=== PATIENT | male | born 2000 | race Caucasian/White ===

== ENCOUNTER 2020-10-24 10:45 | Emergency (ER) | payer OTHER, SELFPAY ==
[2020-10-24 11:00] VITALS: BP 151/78; PULSE 92; RESP 20; TEMP 36.9; O2SAT 98
--- NOTE | 2020-10-24 11:03 | ED.GENADULT ---
HPI - General Adult General Chief complaint: Nausea/Vomiting/Diarrhea Stated complaint: Nausea/Vomitting/Cough up Blood Time Seen by Provider: 10/24/20 10:49 Source: patient Mode of arrival: ambulatory Limitations: no limitations History of Present Illness HPI narrative: 20 y/o male. PMH includes: ADD. Presents to Urgent Care Clinic today with acute complaints of sore throat, nausea, as well as nasal congestion and coughing fits for past 48 hours. Client states to have been Dx w/positive Covid 19 virus October 09, 2020. He reports to have done well for the most part , and now has been coughing so much he has seen blood in his phlegm . He reports isolated episodes of nausea, and notes emesis x 2 twenty-four hours ago. Patient states to have not had any further emesis since that time, and is able to now keep fluids and soft foods down. No fever, chills. No REAGAN, dyspnea. No abdominal pain, flank pain, maleurogen concern, loose or bloody stool. He reports to have missed work yesterday due to his illness, and is now requesting work release. No additional acute c/o upon P.E. Related Data Allergies Allergy/AdvReac Type Severity Reaction Status Date / Time No Known Allergies Allergy Verified 09/30/19 16:53 Review of Systems Review of Systems: Narrative: CONSTITUTIONAL: Denies fever, chills, sweats. EYES: Denies visual changes, redness, discharge. ENT: Positive congestion, sore throat. Denies otalgia. CARDIOVASCULAR: Denies chest pain, palpitations, edema. RESPIRATORY: Denies dyspnea, wheezing. Positive cough. GASTROINTESTINAL: Denies abdominal pain, diarrhea. N/V now subsided. GENITOURINARY: Denies dysuria, hematuria, abnormal discharge SKIN: Denies rash or itching. MUSCULOSKELETAL: Denies acute back pain, joint pain, or myalgia. NEUROLOGIC: Denies numbness, or focal weakness. PSYCHIATRIC: Denies anxiety or depression. All systems reviewed & are unremarkable except as noted in HPI and below (HPI) [facility] Family History Family History Grandparent Diabetes mellitus Other Family history of malignant neoplasm Social History Social History Smoking status: Light tobacco smoker Second hand tobacco smoke exposure: Yes Alcohol intake: current Gender identity (if verbalized by the patient): Male Comments At the time of my signature I agree with nursing past medical history, surgical, social, and family history. There is no relevant family history pertinent to the presenting complaint. Exam Narrative: Exam Narrative: GENERAL: This is a well-nourished, well-developed patient, in no apparent distress. HEAD: normocephalic, atraumatic. EYES: PERRL. Sclera clear/white. Vision is grossly intact. EARS: External ears normal, auditory canals clear and without drainage, TMs normal without perforation. Hearing grossly intact. NOSE: External nose normal. Positive Rhinorrhea and nares with with mild erythema bilaterally. THROAT: Mucous membranes moist. Posterior pharynx is erythematous, but without obvious exudate. No oropharyngeal swelling. NECK: Neck supple, non-tender without lymphadenopathy, masses or thyromegaly. CARDIOVASCULAR: Regular rate and rhythm without murmurs, gallops, or rubs. RESPIRATORY: Breath sounds equal bilaterally. No wheezes or rales. Mild upper airway rhonchi, cleared with cough. No distress. GASTROINTESTINAL: Abdomen soft, non-tender, nondistended. Bowel sounds are active. No hepato-splenomegaly, or palpable masses. No guarding. SKIN: warm, intact with no suspicious lesions or rash, good texture and turgor. NEURO: awake, alert, and oriented to person, place and time. There were no obvious focal neurologic abnormalities. Steady gait EXTREMITIES: Normal range of motion. No edema. No calf tenderness. Negative Homans sign bilaterally. BACK: Nontender without deformity or crepitance. No flank tenderness.
== END 2020-10-24 11:29 | disposition home or self-care (01) ==
PROVIDERS: Emergency Provider Nurse Practitioner Adult Health; PCP Family Medicine
DX: K52.9 Noninfective gastroenteritis and colitis, unspecified (principal); J06.9 Acute upper respiratory infection, unspecified; F17.200 Nicotine dependence, unspecified, uncomplicated; Z86.19 Personal history of other infectious and parasitic diseases
CPT/HCPCS: 87081; 87880; 99213; G0463

== ENCOUNTER 2022-07-05 17:11 | Emergency (ER) | payer OTHER, SELFPAY ==
[2022-07-05 17:18] VITALS: BP 139/83; PULSE 99; RESP 16; TEMP 37.1; O2SAT 97
--- NOTE | 2022-07-05 17:32 | ED.SKABFB ---
HPI - Skin/Abscess/Foreign Bdy General Chief complaint: Skin/Abscess/Foreign Body Stated complaint: Burn/Finger/Right Hand Time Seen by Provider: 07/05/22 17:33 Source: patient and RN notes reviewed Mode of arrival: ambulatory Limitations: no limitations History of Present Illness HPI narrative: 22-year-old male presents concern for a burn to his right hand. He reports on Tuesday he was lighting a grill when he sustained thomason to his fingers, dorsal aspect of his hand. He reports close blisters, open skin on the second digit. He reports he has been cleaning it with antibacterial soap, using Neosporin. 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 MD complaint: other (burn) Related Data Allergies Allergy/AdvReac Type Severity Reaction Status Date / Time No Known Allergies Allergy Verified 07/05/22 17:23 Review of Systems Review of Systems: CONSTITUTIONAL: Denies malaise, chills, sweats, or fever. CARDIOVASCULAR: Denies chest pain, palpitations, or edema. RESPIRATORY: Denies cough or dyspnea. GASTROINTESTINAL: Denies abdominal pain, nausea, vomiting SKIN: Reports thomason to the right hand MUSCULOSKELETAL: Denies joint pain or myalgia. NEUROLOGIC: Denies headache. All systems reviewed & are unremarkable except as noted in HPI and below PMFSH Family History Family History Grandparent Diabetes mellitus Other Family history of malignant neoplasm Social History Social History Smoking status: Light tobacco smoker Second hand tobacco smoke exposure: Yes Alcohol intake: current Gender identity (if verbalized by the patient): Male Comments At time of signature, agree with nursing past medical, surgical, social and family history. There is no relevant family history pertinent to the presenting complaint Exam Narrative: GENERAL: Well-appearing, well-nourished, and in no acute distress. HEAD: Normocephalic, atraumatic. EYES: PERRLA, conjunctivae clear, and EOMI. ENT: Mucous membranes moist. Oropharynx without edema, erythema or lesions. NECK: Supple. No lymphadenopathy CHEST: Clear to auscultation. No respiratory distress. HEART: Regular rate and rhythm. SKIN: Warm, dry. Burn noted to the dorsal aspect of the second digit of the right hand, wound bed is pink. Oral small clear fluid-filled second-degree thomason noted to the hand and third digit, several first-degree thomason noted to the dorsal hand. No palmar thomason noted NEURO: Alert and oriented x3. PSYCH: Normal mood and affect Course Course Emergency Course: Patient is aware of diagnosis, understands and agrees to treatment plan. Anticipatory guidance given. Patient agrees to follow-up as directed and is aware of reasons to seek care at the emergency department. Portions of this record may have been created with voice recognition software Level of Care: Express Care Visit Vital Signs Vital signs: Vital Signs Temperature 98.8 F 07/05/22 17:18 Pulse Rate 99 07/05/22 17:18 Respiratory Rate 16 07/05/22 17:18 Blood Pressure 139/83 07/05/22 17:18 Pulse Oximetry 97 07/05/22 17:18 Oxygen Delivery Room Air 07/05/22 17:18 Temperature 98.8 F 07/05/22 17:18 Pulse Rate 99 07/05/22 17:18 Respiratory Rate 16 07/05/22 17:18 Blood Pressure 139/83 07/05/22 17:18 Pulse Oximetry 97 07/05/22 17:18 Oxygen Delivery Room Air 07/05/22 17:18 Reviewed. MDM - Skin/Abscess/Foreign Bdy MDM Narrative Medical decision making narrative: Exam findings show no acute concerns or changes; patient is non-toxic appearing and is in no distress. Patient is appropriate for outpatient treatment and follow-up. Critical Care Time Critical Care Time Critical Care Time: No Discharge Plan Discharge Clinical Impression: Burn of hand, right, second degree, Burn of back of hand, right, first degree, Burn of back of hand,
== END 2022-07-05 18:01 | disposition home or self-care (01) ==
PROVIDERS: Emergency Provider Nurse Practitioner
DX: T23.361A Burn of third degree of back of right hand, initial encounter (principal); F17.200 Nicotine dependence, unspecified, uncomplicated; X08.8XXA Exposure to other specified smoke, fire and flames, initial encounter
CPT/HCPCS: 99213; A9270; G0463

== ENCOUNTER 2023-03-27 14:11 | Emergency (ER) | payer OTHER, SELFPAY ==
[2023-03-27 14:22] VITALS: BP 157/90; PULSE 55; RESP 16; TEMP 36.8; O2SAT 100
--- NOTE | 2023-03-27 15:09 | ED.GENADULT ---
HPI - General Adult General Chief complaint: Back Pain/Injury Stated complaint: lower back pain Source: patient Mode of arrival: ambulatory Limitations: no limitations History of Present Illness HPI narrative: Patient presents requesting a note to excuse him from work on and Tuesday of last week. He indicates he was working on Tuesday when he slipped on some oil in landed back on his buttocks. He did not his head. No LOC. He had some mild pain in his buttocks at that time. He then developed some left lower back pain. He missed work on and Tuesday. He states his pain resolved on Tuesday. He is planning on returning to work tomorrow. He denies any hematuria, bladder/bowel incontinence or saddle anesthesia. He has no complaints at present time. Related Data Allergies Allergy/AdvReac Type Severity Reaction Status Date / Time No Known Allergies Allergy Verified 07/05/22 17:23 Review of Systems Review of Systems: CONSTITUTIONAL: Denies fever, chills, or sweats. EYES: Denies visual changes, redness, or discharge. ENT: Denies rhinorrhea, congestion, sore throat, or otalgia. CARDIOVASCULAR: Denies chest pain, palpitations, or edema. RESPIRATORY: Denies cough or dyspnea. GASTROINTESTINAL: Denies abdominal pain, nausea, vomiting, or diarrhea. GENITOURINARY: Denies dysuria or hematuria. SKIN: Denies rash or itching. MUSCULOSKELETAL: Reports recent pain in buttocks and left lower back, now resolved NEUROLOGIC: Denies headache, numbness, dizziness, or weakness. PSYCHIATRIC: Denies anxiety or depression. [facility] Past Medical History Medical History No pertinent past medical history Surgical History Surgical History No pertinent past surgical history Family History Family History Grandparent Diabetes mellitus Other Family history of malignant neoplasm Social History Social History Smoking status: Light tobacco smoker Second hand tobacco smoke exposure: Yes Alcohol intake: current Substance use: never Gender identity (if verbalized by the patient): Male Spiritual care concerns: No Exam Narrative: GENERAL: Well-appearing, well-nourished, and in no acute distress. HEAD: Normocephalic, atraumatic. EYES: PERRLA and EOMI. ENT: Nares clear, no rhinorrhea or epistaxis. Mucous membranes moist. Oropharynx without tonsillar hypertrophy exudate or other lesions. Bilateral TMs pearly robles nonbulging NECK: Supple. No adenopathy or masses. No carotid bruits or JVD CHEST: Clear to auscultation. No respiratory distress. No wheezes rales or rhonchi HEART: Regular rate and rhythm. No murmur heard. Normal peripheral pulses. ABDOMEN: Soft, nontender, nondistended, normal active bowel sounds. EXTREMITIES: Normal range of motion. No edema. BACK: No tenderness in midline or paraspinous muscles of lumbar spine. No CVA tenderness. No tenderness in posterior pelvis or buttocks SKIN: Warm, dry, no rash. NEURO: No focal deficits. Alert and oriented x3. PSYCH: Normal mood and affect. Course Course Emergency Course: This is a 23 old male came in following a recent fall essentially asking for a note to return to work. He has no reports of pain and PE is unremarkable. This is a reasonable request. Note provided. Follow up with primary provider. Go to ER for hematuria, saddle anesthesia bladder/bowel incontinence, intractable pain. Patient in agreement plan of care. Level of Care: Express Care Visit Vital Signs Vital signs: Vital Signs Temperature 36.8 C 03/27/23 14:22 Pulse Rate 55 L 03/27/23 14:22 Respiratory Rate 16 03/27/23 14:22 Blood Pressure 157/90 H 03/27/23 14:22 Pulse Oximetry 100 03/27/23 14:22 Oxygen Delivery Room Air 03/27/23
== END 2023-03-27 15:12 | disposition home or self-care (01) ==
PROVIDERS: Emergency Provider Nurse Practitioner; PCP Family Medicine
DX: S39.012A Strain of muscle, fascia and tendon of lower back, initial encounter (principal); W01.0XXA Fall on same level from slipping, tripping and stumbling without subsequent striking against object, initial encounter; F17.200 Nicotine dependence, unspecified, uncomplicated
CPT/HCPCS: 99212; G0463

== ENCOUNTER 2023-06-19 19:14 | Emergency (ER) | payer OTHER, SELFPAY ==
[2023-06-19 19:26] VITALS: BP 149/98; PULSE 92; RESP 16; TEMP 36.7; O2SAT 99
--- NOTE | 2023-06-19 19:27 | WPDEDEXPGENP ---
HPI - General Ped General Chief complaint: Unspecified Stated complaint: Heat exhaustion History of Present Illness HPI narrative: PATIENT HERE REQUESTING A WORK NOTE. 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 PATIENT STATES HE IS KEEPING HIMSELF WELL HYDRATED AND URINATING OFTEN. PATIENT DIET IN EYES ANY NAUSEA VOMITING NO DIZZINESS. PATIENT STATES HE FEELS FINE HE JUST NEEDS A NOTE SO HE CAN RETURN TO WORK ON TUESDAY. Related Data Allergies Allergy/AdvReac Type Severity Reaction Status Date / Time No Known Allergies Allergy Verified 07/05/22 17:23 Pediatric Review of Systems Review of Systems: CONSTITUTIONAL: DENIES FEVER, CHILLS, OR SWEATS. EYES: DENIES VISUAL CHANGES, REDNESS, OR DISCHARGE. ENT: DENIES RHINORRHEA, CONGESTION, SORE THROAT, OR OTALGIA. CARDIOVASCULAR: DENIES CHEST PAIN, PALPITATIONS, OR EDEMA. RESPIRATORY: DENIES COUGH OR DYSPNEA. GASTROINTESTINAL: DENIES ABDOMINAL PAIN, NAUSEA, VOMITING, OR DIARRHEA. GENITOURINARY: DENIES DYSURIA OR HEMATURIA. SKIN: DENIES RASH OR ITCHING. MUSCULOSKELETAL: DENIES BACK PAIN, JOINT PAIN, OR MYALGIA. NEUROLOGIC: DENIES HEADACHE, NUMBNESS, OR WEAKNESS. PSYCHIATRIC: DENIES ANXIETY OR DEPRESSION. [facility] Past Medical History Medical History (Updated 06/19/23 @ 19:30 by GOSIA GarrettP) No pertinent past medical history Surgical History Surgical History No pertinent past surgical history Family History Family History Grandparent Diabetes mellitus Other Family history of malignant neoplasm Social History Social History Smoking status: Light tobacco smoker Second hand tobacco smoke exposure: Yes Alcohol intake: current Substance use: never Gender identity (if verbalized by the patient): Male Spiritual care concerns: No Comments AT TIME OF SIGNATURE, AGREE WITH NURSING PAST MEDICAL, SURGICAL, SOCIAL AND FAMILY HISTORY. THERE IS NO RELEVANT FAMILY HISTORY PERTINENT TO THE PRESENTING COMPLAINT Pediatric Exam Narrative: Physical exam: GENERAL: WELL-APPEARING, WELL-NOURISHED, AND IN NO ACUTE DISTRESS. HEAD: NORMOCEPHALIC, ATRAUMATIC. EYES: PERRLA AND EOMI. ENT: NARES CLEAR, NO RHINORRHEA OR EPISTAXIS. MUCOUS MEMBRANES MOIST. NECK: SUPPLE. CHEST: CLEAR TO AUSCULTATION. NO RESPIRATORY DISTRESS. HEART: REGULAR RATE AND RHYTHM. NO MURMUR HEARD. NORMAL PERIPHERAL PULSES. ABDOMEN: SOFT, NONTENDER, NONDISTENDED, NORMAL ACTIVE BOWEL SOUNDS. EXTREMITIES: NORMAL RANGE OF MOTION. NO EDEMA. SKIN: WARM, DRY, NO RASH. NEURO: NO FOCAL DEFICITS. ALERT AND ORIENTED X3. GISELLE COMA SCALE EYE OPENING: SPONTANEOUS 4 GISELLE COMA SCALE MOTOR: OBEYS COMMANDS 6 GISELLE COMA SCALE VERBAL: ORIENTED 5 GISELLE COMA SCALE TOTAL 15 Course Course Level of Care: Express Care Visit Discharge Plan Discharge Clinical Impression: Encounter to obtain excuse from work Patient Disposition: Home, Self-Care Condition: Stable Instructions: Liquids and Hydration for Athletes (ED) Additional Instructions: PUSH FLUIDS MONITOR OUTPUT FOLLOW UP WITH PCP NEEDED Follow-up/Referrals: PHYSICIAN NOT ON STAFF,NONSTAFF [Primary Care Provider] - Stand Alone Forms: Work/School Release IP
== END 2023-06-19 19:33 | disposition home or self-care (01) ==
PROVIDERS: Emergency Provider Nurse Practitioner Family
DX: Z02.79 Encounter for issue of other medical certificate (principal); T67.5XXA Heat exhaustion, unspecified, initial encounter; X32.XXXA Exposure to sunlight, initial encounter; F17.290 Nicotine dependence, other tobacco product, uncomplicated
CPT/HCPCS: 99211; G0463

== ENCOUNTER 2023-10-04 18:05 | Emergency (ER) | payer OTHER, SELFPAY ==
--- NOTE | ~2023-10-04 | XR_ITS ---
EXAM: XR elbow RT min 3V DATE: 10/04/2023 18:25 HISTORY: HIT RT ELBOW ON A PIECE OF METAL 10/03/24. PAIN. . COMPARISON: None available. FINDINGS: Normal mineralization. No fracture or dislocation. No lytic or blastic lesion. Joint space s are maintained. No erosion or periosteal change. Soft tissues within normal limits. IMPRESSION: No acute osseous finding in the right elbow. Reviewed, dictated and finalized at location K. SUPERVISOR
[2023-10-04 18:10] VITALS: BP 158/97; PULSE 79; RESP 20; TEMP 36.3; O2SAT 98
--- NOTE | 2023-10-04 18:16 | ED.UPPEXIN ---
HPI - Extremity Injury (Upper) General Chief Complaint: Extremity Injury, Upper Stated Complaint: Right elbow injury Source: patient and RN notes reviewed Mode of arrival: ambulatory Limitations: no limitations History of Present Illness HPI narrative: Patient is a 23-year-old male who presents to the [facility] with complaints of right elbow pain. Patient states that he was reaching for an item while at work his his right elbow on a steel bolt. He states that he has noted the bruising and swelling to his elbow. However, he has full range of motion. He is neurovascularly intact distally. Patient states that his pain worsens when he puts weight on the elbow or with palpation. Related Data Home Medications Medication Instructions Recorded Confirmed No Home Medications 10/04/23 10/04/23 Allergies Allergy/AdvReac Type Severity Reaction Status Date / Time No Known Allergies Allergy Verified 10/04/23 18:14 Review of Systems Review of Systems: CONSTITUTIONAL: Denies fever, chills, or sweats. EYES: Denies visual changes, redness, or discharge. ENT: Denies otalgia and sore throat CARDIOVASCULAR: Denies chest pain, palpitations, or edema. RESPIRATORY: Denies cough or dyspnea. GASTROINTESTINAL: Denies abdominal pain, nausea, vomiting, or diarrhea. GENITOURINARY: Denies dysuria or hematuria. SKIN: Denies rash or itching. MUSCULOSKELETAL: Denies back pain or myalgia. Right elbow pain and swelling. NEUROLOGIC: Denies headache, numbness, or weakness. Pertinent positives per HPI. [facility] Past Medical History Medical History No pertinent past medical history Surgical History Surgical History No pertinent past surgical history Family History Family History Grandparent Diabetes mellitus Other Family history of malignant neoplasm Social History Social History Smoking status: Light tobacco smoker Second hand tobacco smoke exposure: Yes Alcohol intake: current Substance use: never Gender identity (if verbalized by the patient): Male Spiritual care concerns: No Comments At the time of my signature, I reviewed and agree with the nursing past medical, surgical, social, and family history. There is no relevant family history pertinent to the patient complaint. Exam Narrative: GENERAL: This is a well-nourished, well-developed patient, in no apparent distress. HEAD: normocephalic, atraumatic. EYES: PERRL. Sclera clear/white. Vision is grossly intact. EARS: External ears normal, auditory canals clear and without drainage, TMs normal without perforation. Hearing grossly intact. NOSE: External nose normal with no obvious nasal discharge, nares without redness, no rhinorrhea. THROAT: Mucous membranes moist, posterior pharynx clear. NECK: Neck supple, non-tender without lymphadenopathy, masses or thyromegaly. CARDIOVASCULAR: Regular rate and rhythm without murmurs, gallops, or rubs. RESPIRATORY: Clear to auscultation. Breath sounds equal bilaterally. No wheezes, rales, or rhonchi. GASTROINTESTINAL: Abdomen soft, non-tender, nondistended. Bowel sounds are active. No hepato-splenomegaly, or palpable masses. No guarding. SKIN: warm, intact with no suspicious lesions or rash, good texture and turgor. NEURO: awake, alert, and oriented to person, place and time. There were no obvious focal neurologic abnormalities. EXTREMITIES: Right elbow tenderness. Mild swelling and bruising. Full range of motion. Distal neurovascular and motor function intact. Course Course Level of Care: Express Care Visit Vital Signs Vital signs: Vital Signs Temperature 97.3 F L 10/04/23 18:10 Pulse Rate 79 10/04/23 18:10 Respiratory Rate 20 10/04/23 18:10 Blood Pressure 158/97 H 10/04/23 18:1
== END 2023-10-04 18:44 | disposition home or self-care (01) ==
PROVIDERS: Emergency Provider Nurse Practitioner
DX: S50.01XA Contusion of right elbow, initial encounter (principal); W22.8XXA Striking against or struck by other objects, initial encounter; Y99.0 Civilian activity done for income or pay
CPT/HCPCS: 73080; 99213; G0463

== ENCOUNTER 2023-12-26 17:52 | Emergency (ER) | payer OTHER, SELFPAY ==
[2023-12-26 18:00] VITALS: BP 142/85; PULSE 60; RESP 18; TEMP 37.2; O2SAT 99
--- NOTE | 2023-12-26 18:21 | ED.GENADULT ---
HPI - General Adult General Chief complaint: Upper Respiratory Infection Stated complaint: diarrhea Source: patient, RN notes reviewed and old records reviewed Mode of arrival: ambulatory Limitations: no limitations History of Present Illness HPI narrative: 23-year-old male patient presents to [facility] with complaint of diarrhea that started Tuesday. Patient states symptoms are slowly improving. Patient denies nausea, vomiting, abdominal pain, cough, congestion. Patient states needing work. Related Data Home Medications Medication Instructions Recorded Confirmed No Home Medications 10/04/23 12/26/23 Allergies Allergy/AdvReac Type Severity Reaction Status Date / Time No Known Allergies Allergy Verified 10/04/23 18:14 Review of Systems Constitutional: Constitutional: Reports no additional constitutional complaints, Denies body ache(s), Denies chills, Denies fatigue, Denies fever(s) and Denies headache(s) Eyes: Eyes: Reports no additional eye complaints and Denies blurry vision ENT: Reports system reviewed and no additional complaints, except as documented, Denies vertigo, Denies dizziness, Denies ear discharge, Denies otalgia, Denies facial pain, Denies headache(s), Denies nasal congestion, Denies nasal discharge, Denies sinus pain, Denies sinus pressure and Denies sore throat Cardiovascular: Cardiovascular: Reports no additional cardiovascular complaints, Denies chest pain, Denies chest pain at rest, Denies rapid heart rate and Denies dyspnea Respiratory: Respiratory: Reports no additional respiratory complaints, Denies chest congestion, Denies cough, Denies pain on inspiration, Denies pain with cough and Denies dyspnea Gastrointestinal: Gastrointestinal: Denies abdominal pain, Reports diarrhea, Denies nausea and Denies vomiting Integumentary/Breasts: Skin/Breast: Denies rash Neurologic: Reports system reviewed and no additional complaints, except as documented, Denies vertigo, Denies dizziness and Denies headache(s) Endocrine: Endocrine: Denies fatigue PMFSH Past Medical History Medical History No pertinent past medical history Surgical History Surgical History No pertinent past surgical history Family History Family History Grandparent Diabetes mellitus Other Family history of malignant neoplasm Social History Social History Smoking status: Light tobacco smoker Second hand tobacco smoke exposure: Yes Alcohol intake: current Substance use: never Gender identity (if verbalized by the patient): Male Spiritual care concerns: No Comments At the time of my signature, I reviewed and agree with the nursing past medical, surgical, social, and family history. There is no relevant family history pertinent to the patient complaint. Exam Const: General: cooperative, healthy appearing, no acute distress and well nourished Nutritional Appearance: well nourished Orientation/consciousness: patient oriented x3 Limitations: no limitations HENMT: Head: normal to inspection and normocephalic Ears: external ears normal, TM's normal bilaterally, mastoids normal and Abnormal EAC present Face/Nose/Sinus: normal facial exam Face and sinus: normal facial exam Mouth: Yes Normal oral and palatal mucosa present, Yes oropharynx normal and Yes moist mucous membranes Throat: posterior oropharynx normal, tonsils normal, uvula midline and no uvular edema Eyes: General: appearance normal, both eyes and all related structures Sclera: sclerae normal Pupils: Equal, round and reactive pupils present Resp: Effort & Inspection: normal respiratory effort, able to speak in complete sentences, no audible wheezes, no cough, no respiratory distress and no retractions Auscultation: clear to auscu
== END 2023-12-26 18:30 | disposition home or self-care (01) ==
PROVIDERS: Emergency Provider Registered Nurse
DX: A08.39 Other viral enteritis (principal); F17.200 Nicotine dependence, unspecified, uncomplicated
CPT/HCPCS: 99211; G0463

== ENCOUNTER 2024-02-25 14:37 | Emergency (ER) | payer OTHER, SELFPAY ==
[2024-02-25 14:46] VITALS: BP 128/78; PULSE 66; RESP 20; TEMP 36.7; O2SAT 98
--- NOTE | 2024-02-25 15:35 | ED.GENADULT ---
HPI - General Adult General Chief complaint: Nausea/Vomiting/Diarrhea Stated complaint: diarrhea/nausea/cough Source: patient Mode of arrival: ambulatory Limitations: no limitations History of Present Illness HPI narrative: Patient presents requesting a note to excuse him from work for the past two days. Three days ago he began experiencing fever, chills, nausea, vomiting, diarrhea, and occasional cough. One of his coworkers was recently ill. No other sick contacts to his knowledge. He has taken nyquil for his symptoms, which allowed him to get some rest. His symptoms are improving. Related Data Allergies Allergy/AdvReac Type Severity Reaction Status Date / Time No Known Allergies Allergy Verified 02/25/24 14:44 Review of Systems Review of Systems: CONSTITUTIONAL: Reports fever and chills EYES: Denies visual changes, redness, or discharge. ENT: Denies rhinorrhea, congestion, sore throat, or otalgia. CARDIOVASCULAR: Denies chest pain, palpitations, or edema. RESPIRATORY: Reports occasional cough. Denies SOB GASTROINTESTINAL: Reports nausea, vomiting, diarrhea, all of which are improving. GENITOURINARY: Denies dysuria or hematuria. SKIN: Denies rash or itching. MUSCULOSKELETAL: Denies back pain, joint pain, or myalgia. NEUROLOGIC: Denies headache, numbness, dizziness, or weakness. PSYCHIATRIC: Denies anxiety or depression. [facility] Past Medical History Medical History Acute viral syndrome No pertinent past medical history Surgical History Surgical History No pertinent past surgical history Family History Family History Grandparent Diabetes mellitus Other Family history of malignant neoplasm Social History Social History Smoking status: Light tobacco smoker Second hand tobacco smoke exposure: Yes Alcohol intake: current Substance use: never Gender identity (if verbalized by the patient): Male Spiritual care concerns: No Exam Narrative: GENERAL: Well-appearing, well-nourished, and in no acute distress. HEAD: Normocephalic, atraumatic. EYES: PERRLA and EOMI. ENT: Nares clear, no rhinorrhea or epistaxis. Mucous membranes moist. Oropharynx without tonsillar hypertrophy exudate or other lesions. Bilateral TMs pearly robles nonbulging NECK: Supple. No adenopathy or masses. No carotid bruits or JVD CHEST: Clear to auscultation. No respiratory distress. No wheezes rales or rhonchi HEART: Regular rate and rhythm. No murmur heard. Normal peripheral pulses. ABDOMEN: Soft, nontender, nondistended, normal active bowel sounds. EXTREMITIES: Normal range of motion. No edema. SKIN: Warm, dry, no rash. NEURO: No focal deficits. Alert and oriented x3. PSYCH: Normal mood and affect. Course Course Emergency Course: This is a 24-year-old male who presented for evaluation of sick symptoms. COVID and influenza negative. Exam is consistent with acute viral syndrome. Symptoms are improving. Will discharge with Lomotil and Zofran. Increase hydration. Follow up with primary provider. Go to the ER for worsening symptoms. Patient in agreement with plan care. Level of Care: Express Care Visit Vital Signs Vital signs: Vital Signs Temperature 36.7 C 02/25/24 14:46 Pulse Rate 66 02/25/24 14:46 Respiratory Rate 20 02/25/24 14:46 Blood Pressure 128/78 02/25/24 14:46 Pulse Oximetry 98 02/25/24 14:46 Oxygen Delivery Room Air 02/25/24 14:46 Temperature 36.7 C 02/25/24 14:46 Pulse Rate 66 02/25/24 14:46 Respiratory Rate 20 02/25/24 14:46 Blood Pressure 128/78 02/25/24 14:46 Pulse Oximetry 98 02/25/24 14:46 Oxygen Delivery Room Air 02/25/24 14:46 Medical Decision Making Vital Signs Vital Signs: Vital Signs T
== END 2024-02-25 15:25 | disposition home or self-care (01) ==
PROVIDERS: Emergency Provider Nurse Practitioner
DX: B34.9 Viral infection, unspecified (principal); Z20.822 Contact with and (suspected) exposure to COVID-19; F17.200 Nicotine dependence, unspecified, uncomplicated
CPT/HCPCS: 87426; 87804; 99213; G0463

== ENCOUNTER 2024-03-15 17:21 | Emergency (ER) | payer OTHER, SELFPAY ==
[2024-03-15 17:25] VITALS: BP 152/93; PULSE 76; RESP 16; TEMP 37.3; O2SAT 99
--- NOTE | 2024-03-15 17:54 | ED.GENADULT ---
HPI - General Adult General Chief complaint: Eye Problems Stated complaint: eyes Time Seen by Provider: 03/15/24 17:42 Source: patient, RN notes reviewed and old records reviewed Mode of arrival: ambulatory Limitations: no limitations History of Present Illness HPI narrative: 24-year-old male to Express Care for complaint of bilateral eye pain for 2 days. Patient states that a has been wearing old contacts for approximately 5 months. Patient states that he has also been falling asleep with his contacts in a lot lately. Patient reports for past 2 days he has woken up with his eyes crusty and irritated. Patient denies visual changes. Related Data Allergies Allergy/AdvReac Type Severity Reaction Status Date / Time No Known Allergies Allergy Verified 02/25/24 14:44 Review of Systems Review of Systems: All systems reviewed & are unremarkable except as noted in HPI and below Constitutional: Constitutional: Reports no additional constitutional complaints Eyes: Eyes: Reports as per HPI, Denies change in vision, Reports eye discharge and Reports irritation ENT: Reports system reviewed and no additional complaints, except as documented Cardiovascular: Cardiovascular: Reports no additional cardiovascular complaints, Denies chest pain and Denies dyspnea Respiratory: Respiratory: Reports no additional respiratory complaints, Denies cough and Denies dyspnea Musculoskeletal: Musculoskeletal: Reports no additional musculoskeletal complaints Neurologic: Reports system reviewed and no additional complaints, except as documented Psychiatric: Psychiatric: Reports no additional psychiatric complaints PMFSH Past Medical History Medical History Acute viral syndrome No pertinent past medical history Surgical History Surgical History No pertinent past surgical history Family History Family History Grandparent Diabetes mellitus Other Family history of malignant neoplasm Social History Social History Smoking status: Light tobacco smoker Second hand tobacco smoke exposure: Yes Alcohol intake: current Substance use: never Gender identity (if verbalized by the patient): Male Spiritual care concerns: No Comments At the time of my signature, I reviewed and agree with the nursing past medical, surgical, social, and family history. There is no relevant family history pertinent to the patient complaint. Exam Const: General: cooperative, healthy appearing, comfortable, no acute distress, alert and well nourished Nutritional Appearance: well nourished Orientation/consciousness: patient oriented x3 Limitations: no limitations HENMT: Head: normal to inspection Ears: external ears normal Face/Nose/Sinus: Normal external nose present, Normal nares present, normal facial exam, No erythema and No edema Face and sinus: normal facial exam, no erythema and no edema Mouth: Yes Normal oral and palatal mucosa present Eyes: Alignment and Position: alignment normal and position normal Periorbital: periorbital findings normal Eyelids: eyelids normal Conjunctivae: conjunctival abnormality bilateral conjunctival injection diffuse Sclera: scleral abnormality bilateral scleral injection Pupils: Equal, round and reactive pupils present Neck: Neck: normal visual inspection, full ROM and no meningeal signs Lymphatic: no lymphadenopathy noted and no lymphedema noted Chest: Chest palpation & inspection: normal inspection of the chest Resp: Effort & Inspection: normal respiratory effort and able to speak in complete sentences Auscultation: clear to auscultation bilaterally Cardio: Jugular venous distension: no JVD Rate: regular rate Rhythm: regular rhythm Back/Spine/Pelvis: Cervical Spine:
== END 2024-03-15 18:01 | disposition home or self-care (01) ==
PROVIDERS: Emergency Provider Nurse Practitioner Family
DX: H10.9 Unspecified conjunctivitis (principal)
CPT/HCPCS: 99213; G0463

== ENCOUNTER 2024-09-03 15:48 | Emergency (ER) | payer OTHER, SELFPAY ==
[2024-09-03 15:53] VITALS: BP 157/82; PULSE 85; RESP 20; TEMP 36.9; O2SAT 100
--- NOTE | 2024-09-03 17:07 | ED.BACK ---
HPI - Back Pain/Injury General Chief Complaint: Back Pain/Injury Stated Complaint: Lower back pain Time Seen by Provider: 09/03/24 17:07 Source: patient, RN notes reviewed and old records reviewed Mode of arrival: ambulatory Limitations: no limitations History of Present Illness HPI Narrative: 24 year old male presents to [facility] care accompanied by significant other with complaints of left lower back pain after helping a friend do some landscaping and lifting on cement blocks and he felt a pull on his lower back.. Patient reports that he has no pain radiation to his legs, denies any tingling or numbness to his legs or any difficulty with passing stool or urination, Patient states pain increases when bending, is able to arise from lying, sitting position without difficulty.Patient has noted left SI pain on palpation. Patient reports that he has not taken any OTC medication for his pain MD elicited complaint: back pain Onset (ago): day(s) (4 days) Pain scale (0-10): 5 Quality: dull and other (tightness) Location: left lower back (SI area) Radiation: none Related Data Allergies Allergy/AdvReac Type Severity Reaction Status Date / Time No Known Allergies Allergy Verified 02/25/24 14:44 Review of Systems Review of Systems: CONSTITUTIONAL: Denies fever, chills, or sweats. EYES: Denies visual changes, redness, or discharge. ENT: Denies rhinorrhea, congestion, sore throat, or otalgia. CARDIOVASCULAR: Denies chest pain, palpitations, or edema. RESPIRATORY: Denies cough or dyspnea. GASTROINTESTINAL: Denies abdominal pain, nausea, vomiting, or diarrhea. GENITOURINARY: Denies dysuria or hematuria. SKIN: Denies rash or itching. MUSCULOSKELETAL: Reports left lower back pain non radiating to legs, or myalgia. NEUROLOGIC: Denies headache, numbness, or weakness. PSYCHIATRIC: Denies anxiety or depression. All systems reviewed & are unremarkable except as noted in HPI and below PMFSH Past Medical History Medical History Acute viral syndrome No pertinent past medical history Surgical History Surgical History (Updated 09/04/24 @ 22:13 by Shalonda Wright NP) History of removal of pigmented skin lesion No pertinent past surgical history Family History Family History Grandparent Diabetes mellitus Other Family history of malignant neoplasm Social History Social History Smoking status: Light tobacco smoker Tobacco type: cigarettes and e-cigarettes/vaping Second hand tobacco smoke exposure: Yes Alcohol intake: current Substance use: current Substance use type: marijuana Gender identity (if verbalized by the patient): Male Spiritual care concerns: No Comments At time of signature, agree with nursing past medical, surgical, social and family history. There is no relevant family history pertinent to the presenting complaint Exam Narrative: GENERAL: Well-appearing, well-nourished, and in no acute distress. HEAD: Normocephalic, atraumatic. EYES: PERRLA and EOMI. ENT: Nares clear, no rhinorrhea or epistaxis. Mucous membranes moist.TM's normal, throat pink with no redness or swelling NECK: Supple. no lymphadenopathy CHEST: Clear to auscultation. No respiratory distress. SAO2 100% on room air HEART: Regular rate and rhythm. No murmur heard. Normal peripheral pulses. ABDOMEN: Soft, nontender, nondistended, normal active bowel sounds. EXTREMITIES: Normal range of motion. No edema. Pain to left lower back with tenderness on palpation over SI region, Pain non radiating to lower extremities, patient denies any tingling or numbness to lower extremities,Patient reports no saddle paraesthesia no difficulty passing urine or stools. Patient has increased pain when bending. SKIN: Warm, dry, no rash. NEURO: No focal deficits. Alert and oriented x3. Course Co
== END 2024-09-03 17:22 | disposition home or self-care (01) ==
PROVIDERS: Emergency Provider Registered Nurse
DX: M54.50 Low back pain, unspecified (principal); F17.210 Nicotine dependence, cigarettes, uncomplicated; F17.290 Nicotine dependence, other tobacco product, uncomplicated
CPT/HCPCS: 99213; G0463

== ENCOUNTER 2024-12-25 14:50 | Emergency (ER) | payer OTHER, SELFPAY ==
--- OUTSIDE RECORDS SUMMARY | 2024-12-25 14:53 | XMS_ITS | Referral Summary ---
Author Organization [facility] Address [address] [place] [address] Care Team Providers Care Aerospace Control And Warning Systems Name Role Phone [facility] Primar Care Provider Source Comments [facility],non-owned Affiliates and Associated Physician Practices is amultiple site organization consisting of ambulatory clinics and hospital sitesin [place], [place], [place] and [place]. This disclosure is being madepursuant to the Care Everywhere program and may not contain all information available regarding this patient. Last updated 18.[facility] Allergies No known active allergies Medications * Be aware that medications may not be up to date on this document. Alwaysverify current medications with the patient. Medication Sig Dispensed Refills Start Date End Date Status benzonatate (TESSALON) 200 MG capsuleIndications:C ough Take 1 capsule by mouth 3 times daily as needed for Cough 30 capsule 11/22/2017 Active Social History Tobacco Use Types Packs/Day Years Used Date Smoking Tobacco: Never Sex and Gender Information Value Date Recorded Sex Assigned at Not on file Gender Identity Not on file Sexual Orientation Not on file Last Filed Vital Signs Vital Sign Reading Time Taken Comments Blood Pressure 120/74 11/22/2017 9:16 AM TITLE MANAGER Pulse 69 11/22/2017 9:16 AM TITLE MANAGER Temperature 37.2 ??C (98.9 ??F) 11/22/2017 9:16 AM CS T Respiratory Rate 16 11/22/2017 9:16 AM TITLE MANAGER Oxygen Saturation 98% 11/22/2017 9:16 AM TITLE MANAGER Inhaled Oxygen Concentration - - Weight 72.6 kg (160 lb) 11/22/2017 9:16 AM TITLE MANAGER Height 182.9 cm (6') 11/22/2017 9:16 AM TITLE MANAGER Body Mass Index 21.7 11/22/2017 9:16 AM TITLE MANAGER Plan of Treatment Not on file Care Teams Aerospace Control And Warning Systems Relationship Specialty Start Date End [facility] [address] [place] [address] PCP - General 11/22/17
--- OUTSIDE RECORDS SUMMARY | 2024-12-25 14:53 | XMS_ITS | Clinical Summary ---
Author Organization [facility] Address [address] [facility] [address] Phone Care Team Providers Care Mechanical Test Engineer Name Role Phone Tavares Fernandez Primary Care Provider [phone] Allergies No known active allergies Medications amphetamine-dext roamphetamine (ADDERALL XR) 20 MG CAPSULE SR 24 HR TK 1 C PO ONCE D IN THE MORNING 0 6 Active amphetamine-dext roamphetamine (ADDERALL) 10 MG Tablet TK ONE T PO QAM 0 6 Active ondansetron (ZOFRAN ODT) 4 MG TABLET DISPERSIBLE Take 1 Tab by mouth every 8 hours as needed for Nausea. 15 Tab 7 Active traMADol (ULTRAM) 50 MG Tablet Take 1 Tab by mouth every 6 hours as needed for Moderate or more severe pain. 10 Tab 9 Active naproxen (NAPROSYN) 500 MG Tablet Take 1 Tab by mouth 2 times daily as needed for Moderate or more severe pain. 20 Tab 9 Active diclofenac (VOLTAREN) 50 MG Tablet Delayed Response Take 1 Tab by mouth 3 times daily. 45 Tab 1 Active Social History Tobacco Use Types Packs/Day Years Used Date Smoking Tobacco: Never Smokeless Tobacco: Never Alcohol Use Standard Drinks/Week Comments No 0 (1 standard drink = 0.6 oz pur e alcohol) socially Sex and Gender Information Value Date Recorded Sex Assigned at Not on file Legal Sex Male 9:01 PM CDT Gender Identity Not on file Sexual Orientation Not on file Occupation Industry Job Start Date Job End Date student Not on file Not on file Not on file Last Filed Vital Signs Vital Sign Reading Time Taken Comments Blood Pressure 101/54 04/28/2021 2:13 AM CDT Pulse 120 04/28/2021 2:08 AM CDT Temperature 36.5 ??C (97.7 ??F) 04/28/2021 2:08 AM CD T Respiratory Rate 20 04/28/2021 2:08 AM CDT Oxygen Saturation 96% 04/28/2021 2:08 AM CDT Inhaled Oxygen Concentration - - Weight 102.1 kg (225 lb) 04/28/2021 2:13 AM CDT Height 182.9 cm (6') 04/28/2021 2:13 AM CDT Body Mass Index 30.52 04/28/2021 2:13 AM CDT Plan of Treatment Health Maintenance Due Date Last Done Comments Hepatitis C Virus (HCV) Screening 1999 TdaP Immunization 1999 Human Papillomavirus (HPV) Immunization (1 - Male 3-dose series) 2014 Influenza Immunization (#1) 2024 SARS-COV-2 Immunization ( - season) 2024 Respiratory Syncytial Virus (RSV) Immunization (Adult) (1 - 1-dose 75+ series) 2074 Hepatitis B Immunization Completed 999, 1999, 1999 DTaP/Tdap/Td Immunization Discontinued 2003, 10/10/2000, 1999, Additional history exists Meningococcal Immunization (ACWY) Aged Out No longer eligible based on patient's age to complete this topic Pneumococcal Immunization Combined Aged Out No longer eligible based on patient's age to complete this topic Rotavirus Immunization Aged Out No lo nger eligible based on patient's age to complete this topic Insurance [facility] OAP [facility] OA [facility] OA Care Teams Mechanical Test Engineer Relationship Specialty Start Date End Date Tavares Fernandez DO [address] [place] [id number] PCP - General Family Medicine 07/26/19
--- OUTSIDE RECORDS SUMMARY | 2024-12-25 14:53 | XMS_ITS | Clinical Summary ---
Author Organization [facility] Address [address] [place] [address] Care Team Providers Care Embossing Press Operator Apprentice Name Role Phone [facility] Primar Care Provider Source Comments [facility],non-owned Affiliates and Associated Physician Practices is amultiple site organization consisting of ambulatory clinics and hospital sitesin [place], [place], [place] and [place]. This disclosure is being madepursuant to the Care Everywhere program and may not contain all information available regarding this patient. Last updated 18.[facility] Allergies No known active allergies Medications * [...] Comments Blood Pressure 120/74 11/22/2017 9:16 AM MACHINE OPERATOR CANE CUTTER Pulse 69 11/22/2017 9:16 AM MACHINE OPERATOR CANE CUTTER Temperature 37.2 ??C (98.9 ??F) 11/22/2017 9:16 AM CS T Respiratory Rate 16 11/22/2017 9:16 AM MACHINE OPERATOR CANE CUTTER Oxygen Saturation 98% 11/22/2017 9:16 AM MACHINE OPERATOR CANE CUTTER Inhaled Oxygen Concentration - - Weight 72.6 kg (160 lb) 11/22/2017 9:16 AM MACHINE OPERATOR CANE CUTTER Height 182.9 cm (6') 11/22/2017 9:16 AM MACHINE OPERATOR CANE CUTTER Body Mass Index 21.7 11/22/2017 9:16 AM MACHINE OPERATOR CANE CUTTER Plan of Treatment Health Maintenance Due Date Last Done Comments HIV SCREENING 2014 HPV VACCINE (1 - Male 3-dose series) 2014 HEPATITIS C SCREENING 02/15/2017 DTAP/TDAP/TD VACCINES (1 - Tdap) 2018 HEPATITIS B VACCINE (1 of 3 - 19+ 3-dose series) 2018 COVID-19 VACCINE (1 - 2023-2 5 season) 2024 INFLUENZA VACCINE (#1) 2024 DEPRESSION SCREENING 11/21/2024 ZOSTER VACCINE (1 of 2) 2049 HIB VACCINE Aged Out No longer eligi ble based on patient's age to complete this topic MENINGOCOCCAL (Group B) VACCINE Aged Out No longer eligible based on patient's age to complete this topic MENINGOCOCCAL VACCINE Aged Out No clyde nadya eligible based on patient's age to complete this topic PNEUMOCOCCAL VACCINE Aged Out No long er eligible based on patient's age to complete this topic Care Teams Embossing Press Operator Apprentice Relationship Specialty Start Date End Date [facility] [address] [place] [id number] PCP - General 11/22/17
--- OUTSIDE RECORDS SUMMARY | 2024-12-25 14:53 | XMS_ITS | Patient Health Summary ---
Author Organization [facility] Address [address] [place] [address] Care Team Providers Care Traffic Observer Name Role Phone [facility] Primar Care Provider Note from [facility],non-owned Affiliates and Associated Physician Practices is amultiple site organization consisting of ambulatory clinics and hospital sitesin [place], [place], [place] and [place]. This disclosure is being madepursuant to the Care Everywhere program and may not contain all information available regarding this patient. Last updated 18.[facility] Allergies No known active allergies Medications * Be aware that medications may not be up to date on this document. Alwaysverify current medications with the patient. * benzonatate (TESSALON) 200 MG capsule(Started 11/22/2017) Take 1 capsule by mouth 3 times daily as needed for Cough Social History Tobacco Use Types Packs/Day Years Used Date Smoking Tobacco: Never Sex and Gender Information Value Date Recorded Sex Assigned at Not on file Gender Identity Not on file Sexual Orientation Not on file Last Filed Vital Signs Vital Sign Reading Time Taken Comments Blood Pressure 120/74 11/22/2017 9:16 AM BILLING COORDINATOR Pulse 69 11/22/2017 9:16 AM BILLING COORDINATOR Temperature 37.2 ??C (98.9 ??F) 11/22/2017 9:16 AM CS T Respiratory Rate 16 11/22/2017 9:16 AM BILLING COORDINATOR Oxygen Saturation 98% 11/22/2017 9:16 AM BILLING COORDINATOR Inhaled Oxygen Concentration - - Weight 72.6 kg (160 lb) 11/22/2017 9:16 AM BILLING COORDINATOR Height 182.9 cm (6') 11/22/2017 9:16 AM BILLING COORDINATOR Body Mass Index 21.7 11/22/2017 9:16 AM BILLING COORDINATOR Procedures * STREP A SCREEN - POINT OF CARE (AMB) STL(Performed 02/23/2017) Performed for Nasopharyngitis acute Results * STREP A SCREEN (02/23/2017) Strep A Rapid POCT Negative Negative Strep A Internal Control Present Lot # [id number] Expiration Date Throat ENTIRE THROAT (SURFACE REGION OF NECK) / Unknown 02/23/2017 Funmi Dexter OUTPATIENT SURGERY RN-CATERPILLAR OPERATOR LAB - POINT OF CARE ORDERABLES Care Teams Traffic Observer Relationship Specialty Start Date End Date [facility] [address] [place] [id number] PCP - General 11/22/17
--- NOTE | 2024-12-25 14:57 | ED.MALEGU ---
HPI - Male Genitourinary General Chief complaint: Urogenital-Male Stated complaint: STD check Source: patient and RN notes reviewed Mode of arrival: ambulatory Limitations: no limitations History of Present Illness HPI Narrative: 24 y/o male presented for STD testing. Endorses a mild burning sensation with urination x2 days. Endorses unprotected sexual activity recently, stating he woke up at someone's house he didn't know. Endorses a previous STD and says this feels similar. Denies n/v/d/f/c. Related Data Home Medications ?Medication ?Instructions ?Recorded ?Confirmed ?Last Taken ?Type No Home Medications 12/25/24 12/25/24 Unknown History Allergies Allergy/AdvReac Type Severity Reaction Status Date / Time No Known Allergies Allergy Verified 12/25/24 15:08 Review of Systems Review of Systems: CONSTITUTIONAL: Denies body aches, fever, chills, or sweats. CARDIOVASCULAR: Denies chest pain, palpitations, or edema. RESPIRATORY: Denies cough or dyspnea. GASTROINTESTINAL: Denies abdominal pain, nausea, vomiting, or diarrhea. GENITOURINARY: Reports dysuria,denies frequency, urgency, hematuria, flank pain SKIN: Denies rash, itching, or wounds. MUSCULOSKELETAL: Denies back pain or myalgia. [facility] Past Medical History Medical History Acute viral syndrome No pertinent past medical history Surgical History Surgical History History of removal of pigmented skin lesion No pertinent past surgical history Family History Family History Grandparent Diabetes mellitus Other Family history of malignant neoplasm Social History Social History Smoking status: Light tobacco smoker Tobacco type: cigarettes and e-cigarettes/vaping Second hand tobacco smoke exposure: Yes Alcohol intake: current Substance use: current Substance use type: marijuana Gender identity (if verbalized by the patient): Male Spiritual care concerns: No Comments At time of signature, I have reviewed and agree with nursing past medical, surgical, social and family history unless otherwise noted. Please see nursing chart for further information. There is no relevant family history pertinent to the presenting complaint Exam Narrative: GENERAL: Well-appearing HEAD: Normocephalic EYES: EOMI. . ENT: Mucous membranes pink and moist. NECK: Normal AROM. Supple. CHEST: No respiratory distress. SKIN: Warm, dry, no rash. NEURO: No focal deficits. Alert and oriented x3. Gait steady. PSYCH: Normal affect. Course Course Emergency Course: Patient is aware of diagnosis, understands and agrees to treatment plan. Anticipatory guidance given. Patient agrees to follow-up as directed and is aware of reasons to seek care at the emergency department. Portions of this record may have been created with voice recognition software Level of Care: Express Care Visit Vital Signs Vital signs: Reviewed MDM - Male Genitourinary MDM Narrative Medical decision making narrative: Patient presenting with concern for STD. Urine specimen collected for GC, chlamydia, trich. Informed Pt will be contacted w/ results when they become available if they are positive. Discussed with patient that it takes up to 7 days for results of cultures to be released and explained that we may treat empirically at this time. Declines treatment at this time and will return should tests be positive. I have instructed the patient to return to the ER at any time if there are any new or worsening symptoms. The patient expressed understanding of and agreement with this plan. Differential Diagnosis Differential diagnosis: Likely urinary tract infection and urethritis Discharge Plan Discharge Clinical Impression: Concern about STD in male without diagnosis Patient Disposition: Home, Self-Care Condition: Stable Instructions: Antibiotic Form, Sexually Transmitted Diseases (ED), Safe Sex Practices (ED) Additional Instructions: Your urine has been sent off to test for gonorrhea, chlamydia, and trichomonas infections. You will be called if any of your tests come back positive. These tests can take up to 5 days to come back. If your tests come back positive you will need further treatment, and you will need to notify any partners that you have so they can be tested and treated. To avoid reinfection, you are advised to abstain from sexual intercourse until you and sex partners have been treated (ie, after completing the 7-day antibiotic regimen, and any symptoms have resolved. If your tests come back negative and you are still experiencing symptoms, please follow-up with your PCP for further evaluation and treatment. If your symptoms worsen to include fever, abdominal pain, or back pain, please go to the hospital immediately. Patient Language: Cypriot Prescriptions: No Action No Home Medications Follow-up/Referrals: PHYSICIAN,CLINICAL ENGINEERING MANAGER [Primary Care Provider] - Time of Disposition: 15:11
[2024-12-25 14:58] VITALS: BP 150/89; PULSE 85; RESP 20; TEMP 36.7; O2SAT 100
[2024-12-25 15:26] LABS: EDUAAPPEAR Clear; EDUABILI Negative (Negative); EDUABLOOD Trace (Negative); EDUACOLOR1 Light/Pale; EDUAGLUCOSE Negative (Negative); EDUAKETONE Negative (Negative); EDUALEUKO Negative (Negative); EDUANITRATE Negative (Negative); EDUAPROTEIN Negative (Negative); EDUASPGRAVITY 1.015; EDUAUROBILI 0.2
[2024-12-25 20:03] LABS: Trichomonas Vag PCR NOT DETECTED (NOT DETECTE)
[2024-12-25 20:26] LABS: Chlamydia trachomatis NOT DETECTED (NOT DETECTE); Neisseria gonorrhoeae PCR NOT DETECTED (NOT DETECTE)
== END 2024-12-25 15:12 | disposition home or self-care (01) ==
PROVIDERS: Emergency Provider Nurse Practitioner Family
DX: Z20.2 Contact with and (suspected) exposure to infections with a predominantly sexual mode of transmission (principal); F17.210 Nicotine dependence, cigarettes, uncomplicated; F17.290 Nicotine dependence, other tobacco product, uncomplicated; F12.90 Cannabis use, unspecified, uncomplicated
CPT/HCPCS: 81003; 87086; 87491; 87591; 87661; 99213; G0463

== ENCOUNTER 2024-12-26 12:00 | Emergency (ER) | payer OTHER, SELFPAY ==
[2024-12-26 12:05] VITALS: BP 148/85; PULSE 72; RESP 18; TEMP 36.3; O2SAT 100
--- NOTE | 2024-12-26 12:31 | ED.MALEGU ---
HPI - Male Genitourinary General Chief complaint: Urogenital-Male Stated complaint: STD Exposure Time Seen by Provider: 12/26/24 12:28 Source: patient, RN notes reviewed and old records reviewed Mode of arrival: ambulatory Limitations: no limitations History of Present Illness HPI Narrative: 24 year old male resents to express care with complaints of lower back pain for a few days with no injury and stinging with urination. Patient was seen in clinic yesterday and STD screening performed per urine specimen yesterday which were all negative and urine dip also performed with some blood noted in urine with culture sent. Patient reports that he came back today because he is having symptoms of stinging with urination and he is having the back pain with no history of kidney stones reported. Urine dip repeated today with 2+ ketones noted. fingerstick glucose was done with results of 92. Patient was given information yesterday about more comprehensive testing for STD's at [facility] and other facilities in area and patient reports he must of thrown it away. Patient reports that yesterday after he left he broke his phone. Patient reports that he has past history of ADHD. Patient states that he has taken NyQuil to help him sleep due to back pain. MD Complaint: other (stinging with urination and lower back pain) Onset (ago): day(s) (stinging with urination since last night and low back pain for a few days stated no injury) Severity: mild Severity scale (1-10): 2 Quality: aching Related Data Allergies Allergy/AdvReac Type Severity Reaction Status Date / Time No Known Allergies Allergy Verified 12/26/24 12:42 Review of Systems Review of Systems: CONSTITUTIONAL: Denies fever, chills, or sweats. CARDIOVASCULAR: Denies chest pain, palpitations, or edema. RESPIRATORY: Denies cough or dyspnea. GASTROINTESTINAL: Denies abdominal pain, nausea, vomiting, or diarrhea. GENITOURINARY: Reports stinging with urination NO frequency, urgency. Denies flank pain or hematuria. SKIN: Denies rash or itching. MUSCULOSKELETAL: Reports lower back pain or myalgia with no injury Denies CVA tenderness NEUROLOGIC: Denies headache All systems reviewed & are unremarkable except as noted in HPI and below PMFSH Past Medical History Medical History Chlamydia 2018 0r 2019 reported ADHD (attention deficit hyperactivity disorder) reports he has not been on medication since graduated high school Acute viral syndrome No pertinent past medical history Surgical History Surgical History [place] teeth extracted History of removal of pigmented skin lesion Family History Family History Grandparent Diabetes mellitus Other Family history of malignant neoplasm Social History Social History Smoking status: Light tobacco smoker Tobacco type: cigarettes and e-cigarettes/vaping Second hand tobacco smoke exposure: Yes Alcohol intake: current Substance use: current Substance use type: marijuana Gender identity (if verbalized by the patient): Male Spiritual care concerns: No Comments At time of signature, agree with nursing past medical, surgical, social and family history. There is no relevant family history pertinent to the presenting complaint Exam Narrative: GENERAL: Well-appearing, well-nourished, and in no acute distress. HEAD: Normocephalic, atraumatic. NECK: Supple. CHEST: Clear to auscultation. No respiratory distress.SAO2 100% on room air HEART: Regular rate and rhythm. No murmur heard. Normal peripheral pulses. ABDOMEN: Soft, nontender, nondistended, normal active bowel sounds. No CVA tenderness reports stinging with urination EXTREMITIES: Normal range of motion. No edema reports lower back pain with no injury no radiation of pain to legs, denies any saddle paraesthesia or difficulty passing urine or stools, denies any tingling or numbness in legs. Able to change positions without difficulty, walks with steady gait. SKIN: Warm, dry, no rash. NEURO: No focal deficits. Alert and oriented x3.anxious Course Course Emergency Course: Patient is aware of diagnosis, understands and agrees to treatment plan.? Anticipatory guidance given.? Patient agrees to follow-up as directed and is aware of reasons to seek care at the emergency department. Portions of this record may have been created with voice recognition software Level of Care: Express Care Visit Vital Signs Vital signs: Vital Signs Temperature 36.3 C L 12/26/24 12:05 Pulse Rate 72 12/26/24 12:05 Respiratory Rate 18 12/26/24 12:05 Blood Pressure 148/85 H 12/26/24 12:05 Pulse Oximetry 100 12/26/24 12:05 Oxygen Delivery Room Air 12/26/24 12:05 Temperature 36.3 C L 12/26/24 12:05 Pulse Rate 72 12/26/24 12:05 Respiratory Rate 18 12/26/24 12:05 Blood Pressure 148/85 H 12/26/24 12:05 Pulse Oximetry 100 12/26/24 12:05 Oxygen Delivery Room Air 12/26/24 12:05 MDM - Male Genitourinary MDM Narrative Medical decision making narrative: Patient was given information about more comprehensive testing for STD's and information on how to contact again today, he was given information yesterday also which he threw away. Differential Diagnosis Differential diagnosis: Likely urethritis and other (stinging with urination, low back pain, concern with possible STD exposure, anxiety) Medical Records Attestation: I reviewed the patient's medical records. Lab Data Attestation: I reviewed the patient's lab results. Lab results narrative: see urine dip 2+ ketones.urine clear and yellow.fingerstick glucose 92 Labs: Lab Results 12/26/24 12/26/24 Range/Units 12:40 12:52 POC Capillary Glucose 92 (65-105) mg/dl POC Urine Color Yellow POC Urine Clarity Clear POC Urine pH 6.0 POC Ur Specif [place] 1.025 POC Urine Protein Negative (Negative) POC Ur Glucose (UA) Negative (Negative) POC Urine Ketones 2+ (Negative) POC Urine Blood Negative (Negative) POC Urine Nitrite Negative (Negative) POC Urine Bilirubin Negative (Negative) POC Urine Urobilinogen 0.2 POC U Leukocyte Esteras Negative (Negative) reviewed Critical Care Time Critical Care Time Critical Care Time: No Discharge Plan Discharge Clinical Impression: Possible exposure to STD Lower back pain Qualifiers: Chronicity: unspecified Back pain laterality: bilateral Sciatica presence: without sciatica Qualified Code(s): M54.50 - Low back pain, unspecified Patient Disposition: Home, Self-Care Condition: Stable Instructions: Sexually Transmitted Diseases (ED), Arthralgia (ED) Additional Instructions: Patient needs more comprehensive testing for STDs evaluation information given [facility] with information on how to contact. Patient was tested for gonorrhea chlamydia and Trichomonas yesterday with all test negative Patient reports back pain for the last 2-3 days no injury reported Patient needs to get established with Doctor. for primary care evaluation If your symptoms persist, change or worsen significantly before you can contact your personal physician then please, without delay, go to the emergency department for further evaluation. Follow-up with PCP in 7-10 days or sooner if needed Follow up with PCP soon in regards to your blood pressure which is elevated above threshold for referral. Blood pressure above 120/80 may indicate pre-hypertension blood pressure today 148/85. Patient Language: Mohawk Prescriptions: New naproxen 500 mg tablet 500 mg PO BID PRN (Reason: pain) Qty: 20 0RF Rx Instructions: take with food Follow-up/Referrals: PHYSICIAN,OUTDOOR ADVENTURE LEADER [Primary Care Provider] - Stand Alone Forms: Work/School Release IP Time of Disposition: 13:02 Quality Agustin Coma Scale Eyes: Open Verbal: Oriented and Alert Motor: Follows Commands [place] Coma Total Score: 15
[2024-12-26 12:44] LABS: Glucose Point of Care 92 mg/dl (65-105)
[2024-12-26 12:54] LABS: EDUAAPPEAR Clear; EDUABILI Negative (Negative); EDUABLOOD Negative (Negative); EDUACOLOR1 Yellow; EDUAGLUCOSE Negative (Negative); EDUAKETONE 2+ (Negative); EDUALEUKO Negative (Negative); EDUANITRATE Negative (Negative); EDUAPROTEIN Negative (Negative); EDUASPGRAVITY 1.025; EDUAUROBILI 0.2
--- OUTSIDE RECORDS SUMMARY | 2024-12-26 13:15 | XMS_ITS | Clinical Summary ---
Author Organization [facility] Address [address] [facility] [place] [address] Phone Care Team Providers Care Call Manager Name Role Phone Tavares Fernandez Primary Care Provider [phone] Allergies No known active allergies Medications amphetamine-dext [...] patient's age to complete this topic Insurance [facility] OAP [facility] OA [facility] OA Care Teams Call Manager Relationship Specialty Start Date End Date Tavares Fernandez DO [address] [id number] PCP - General Family Medicine 07/26/19
--- OUTSIDE RECORDS SUMMARY | 2024-12-26 13:15 | XMS_ITS | Referral Summary ---
Author Organization [facility] Address [address] [place] [address] Care Team Providers Care Pesticide Use Medical Coordinator Name Role Phone [facility] Primar Care Provider Source Comments [facility],non-owned Affiliates and Associated Physician Practices is amultiple site organization consisting of ambulatory clinics and hospital sitesin [place], [place], [place] and [place]. This disclosure is being madepursuant to the Care Everywhere program and may not contain all information available regarding this patient. Last updated 18.[facility] Allergies No known active allergies Medications * [...] Comments Blood Pressure 120/74 11/22/2017 9:16 AM RING SEWER Pulse 69 11/22/2017 9:16 AM RING SEWER Temperature 37.2 ??C (98.9 ??F) 11/22/2017 9:16 AM CS T Respiratory Rate 16 11/22/2017 9:16 AM RING SEWER Oxygen Saturation 98% 11/22/2017 9:16 AM RING SEWER Inhaled Oxygen Concentration - - Weight 72.6 kg (160 lb) 11/22/2017 9:16 AM RING SEWER Height 182.9 cm (6') 11/22/2017 9:16 AM RING SEWER Body Mass Index 21.7 11/22/2017 9:16 AM RING SEWER Plan of Treatment Not on file Care Teams Pesticide Use Medical Coordinator Relationship Specialty Start Date End [facility] [address] [place] [address] PCP - General 11/22/17
--- OUTSIDE RECORDS SUMMARY | 2024-12-26 13:15 | XMS_ITS | Clinical Summary ---
Author Organization [facility] Address [address] [place] [address] Care Team Providers Care Sales Professional Bilingual Name Role Phone [facility] Primar Care Provider Source Comments [facility],non-owned Affiliates and Associated Physician Practices is amultiple site organization consisting of ambulatory clinics and hospital sitesin [place], [place], [place] and [place]. This disclosure is being madepursuant to the Care Everywhere program and may not contain all information available regarding this patient. Last updated 18.[facility] Allergies No known active allergies Medications * [...] Comments Blood Pressure 120/74 11/22/2017 9:16 AM K9 HANDLER Pulse 69 11/22/2017 9:16 AM K9 HANDLER Temperature 37.2 ??C (98.9 ??F) 11/22/2017 9:16 AM CS T Respiratory Rate 16 11/22/2017 9:16 AM K9 HANDLER Oxygen Saturation 98% 11/22/2017 9:16 AM K9 HANDLER Inhaled Oxygen Concentration - - Weight 72.6 kg (160 lb) 11/22/2017 9:16 AM K9 HANDLER Height 182.9 cm (6') 11/22/2017 9:16 AM K9 HANDLER Body Mass Index 21.7 11/22/2017 9:16 AM K9 HANDLER Plan of Treatment Health Maintenance Due Date [...] age to complete this topic Care Teams Sales Professional Bilingual Relationship Specialty Start Date End Date [facility] [address] [place] [id number] PCP - General 11/22/17
--- OUTSIDE RECORDS SUMMARY | 2024-12-26 13:15 | XMS_ITS | Patient Health Summary ---
Author Organization [facility] Address [address] [place] [address] Care Team Providers Care Engineering Assistant Name Role Phone [facility] Primar Care Provider Note from [facility],non-owned Affiliates and Associated Physician Practices is amultiple site organization consisting of ambulatory clinics and hospital sitesin [place], [place], [place] and [place]. This disclosure is being madepursuant to the Care Everywhere program and may not contain all information available regarding this patient. Last updated 18.[facility] Allergies No known active allergies Medications * [...] Comments Blood Pressure 120/74 11/22/2017 9:16 AM DRUM STENCILER Pulse 69 11/22/2017 9:16 AM DRUM STENCILER Temperature 37.2 ??C (98.9 ??F) 11/22/2017 9:16 AM CS T Respiratory Rate 16 11/22/2017 9:16 AM DRUM STENCILER Oxygen Saturation 98% 11/22/2017 9:16 AM DRUM STENCILER Inhaled Oxygen Concentration - - Weight 72.6 kg (160 lb) 11/22/2017 9:16 AM DRUM STENCILER Height 182.9 cm (6') 11/22/2017 9:16 AM DRUM STENCILER Body Mass Index 21.7 11/22/2017 9:16 AM DRUM STENCILER Procedures * STREP A SCREEN - POINT OF CARE (AMB) STL(Performed 02/23/2017) Performed for Nasopharyngitis acute Results * STREP A SCREEN (02/23/2017) Strep A Rapid POCT Negative Negative Strep A Internal Control Present Lot # [id number] Expiration Date Throat ENTIRE THROAT (SURFACE REGION OF NECK) / Unknown 02/23/2017 Funmi Dexter REAL ESTATE ACCOUNT EXECUTIVE-[facility] DEVELOPER [facility] - POINT OF CARE ORDERABLES Care Teams Engineering Assistant Relationship Specialty Start Date End Date [facility] [address] [place] [id number] PCP - General 11/22/17
== END 2024-12-26 13:08 | disposition home or self-care (01) ==
PROVIDERS: Emergency Provider Registered Nurse
DX: M54.50 Low back pain, unspecified (principal); F17.210 Nicotine dependence, cigarettes, uncomplicated
CPT/HCPCS: 81003; 82948; 99213; G0463